=== PATIENT | male | born 1960 | race African-American/Black ===

== ENCOUNTER 2020-11-29 11:33 | Emergency (ER) | payer OTHER, SELFPAY ==
[~2020-11-29] VITALS: Ht 162.6 cm; Wt 113.4 kg
[2020-11-29 11:54] VITALS: BP_SYST 106
[2020-11-29] MEDS ORDERED: NAPR-1172 PO (13:09)
[2020-11-29] MEDS ORDERED: ACET-2634 PO (13:09)
[2020-11-29 13:25] VITALS: BP_SYST 106
== END 2020-11-29 13:25 | disposition home or self-care (01) ==
LOC: SED 11:33
DX: U07.1 COVID-19 (principal); I10 Essential (primary) hypertension; Z79.899 Other long term (current) drug therapy
CPT/HCPCS: 36415; 71045; 99284

== ENCOUNTER 2020-12-05 03:03 | Inpatient (IN) | payer OTHER, SELFPAY ==
[~2020-12-05] VITALS: Ht 190.5 cm; Wt 142.4 kg
[2020-12-05] VITALS (25 sets, daily range): BP systolic 85–156
[~2020-12-05 03:03] MED LIST: ACET-2634 PO; NAPR-1172 PO
[2020-12-05] MEDS ORDERED: ETOMIDATE 20 MG/ 10 ML VIAL (AMIDATE) IVP ONE ×2 (03:04→04:00)
[2020-12-05] MEDS ORDERED: ROCURONIUM BROMIDE 10 MG/ML (ZEMURON) IV ONE ×2 (03:04→04:00)
[2020-12-05] MEDS ORDERED: DEXAMETHASONE SOD PHOSPHATE 10 MG/ML VIAL IVP ONE (03:15)
[2020-12-05] MEDS ORDERED: AZITHROMYCIN 500 MG in NS 250 ML IV ONE (03:15)
[2020-12-05] MEDS ORDERED: cefTRIAXone 1 GM IVPB PREMIX 50 ML IV ONE (03:15)
[2020-12-05] MEDS ORDERED: AZITHROMYCIN 500 MG/VIAL (ZITHROMAX) IV ONE (03:29)
[2020-12-05] MEDS ORDERED: DEXAMETHASONE SOD PHOSPHATE 10 MG/ML VIAL ONE (03:30)
[2020-12-05 03:48] LABS: BASOPHILS # (AUTO) 0.1 K/uL (0.0-0.2); BASOPHILS % (AUTO) 1.1 % (0.0-2.0); HEMATOCRIT 36.7 % (36-54); HEMOGLOBIN 12.9 g/dL (14.0-18.0); LYMPHOCYTES # (AUTO) 1.2 K/uL (1.0-5.5); LYMPHOCYTES % (AUTO) 16.4 % (20.5-51.5); MEAN CORPUSCULAR HEMOGLOBIN 32 pg (27-31); MEAN CORPUSCULAR HGB CONC 35 % (32-36); MEAN CORPUSCULAR VOLUME 92 fL (79.0-98.0); MONOCYTES # (AUTO) 0.5 K/uL (0.0-1.0); MONOCYTES % (AUTO) 6.3 % (1.7-9.3); NEUTROPHILS # (AUTO) 5.5 K/uL (1.8-7.7); NEUTROPHILS % (AUTO) 76.2 % (40.0-70.0); PLATELET COUNT (AUTO) 260 K/uL (130-430); RED BLOOD CELL COUNT(AUTO) 4.01 MIL/uL (4.2-6.2); RED CELL DISTRIBUTION WIDTH 15.4 % (9.0-15.0); WHITE BLOOD COUNT (AUTO) 7.3 K/uL (4.8-10.8)
[2020-12-05] MEDS ORDERED: PROPOFOL DRIP 100 ML IV ONE ×2 (03:54→04:00)
[2020-12-05] MEDS ORDERED: LORazepam 2 MG/ML VIAL ONE (04:13)
[2020-12-05] MEDS ORDERED: LORazepam 2 MG/ML VIAL IVP ONE (04:15)
[2020-12-05 04:22] LABS: CALCIUM 7.5 mg/dL (8.4-11.0); CREATININE 2.3 mg/dL (0.55-1.30); POTASSIUM 4.1 mmol/L (3.5-5.1)
[2020-12-05 04:35] LABS: ALBUMIN 2.7 g/dL (3.4-4.8); TOTAL BILIRUBIN 0.5 mg/dL (0.0-1.0)
[2020-12-05] MEDS ORDERED: MELO15TA13 PO (04:40)
[2020-12-05] MEDS ORDERED: CYCL-10 PO (04:40)
[2020-12-05] MEDS ORDERED: LIP10 PO (04:40)
[2020-12-05] MEDS ORDERED: LEVE1000 PO (04:40)
[2020-12-05] MEDS ORDERED: CARV25TA55 PO (04:40)
[2020-12-05] MEDS ORDERED: DITXL5 PO (04:40)
[2020-12-05] MEDS ORDERED: ASPI-1393 PO (04:40)
[2020-12-05] MEDS ORDERED: NACL 0.9% 1,000 ML IV ONE ×2 (05:00→06:00)
[2020-12-05] MEDS ORDERED: IOHEXOL 350 mgI/mL, 150 ML INFUS..BTL IV ONE (06:31)
[2020-12-05] MEDS ORDERED: D5/0.45 NS 1,000 ML IV SCH (07:00)
[2020-12-05] MEDS ORDERED: ONDANSETRON HCL 4 MG/2 ML VIAL IVP PRN (07:45)
[2020-12-05] MEDS ORDERED: NOREPINEPHRINE 4 MG/4 ML VIAL IV ONE (07:59)
[2020-12-05 09:43] LABS: PROTHROMBIN TIME 10.9 SECS (9.5-12.5)
[2020-12-05] MEDS ORDERED: IPRATROPIUM BROM 0.5 MG/2.5 ML VIAL.NEB (ATROVENT) INH SCH (11:00)
[2020-12-05] MEDS ORDERED: ALBUTEROL SULFATE 0.083% 2.5 MG/3 ML VIAL.NEB INH SCH (11:00)
[2020-12-05] MEDS: PROPOFOL DRIP 100 ML IV PRN ×4 (11:12→18:25)
[2020-12-05] MEDS ORDERED: NALOXONE HCL 0.4 MG/ML AMP (NARCAN) IVP PRN (11:15)
[2020-12-05] MEDS ORDERED: IVERMECTIN 3 MG TABLET PO ONE (11:45)
[2020-12-05] MEDS ORDERED: TOCILIZUMAB 400 MG in NS 100 ML IV ONE (11:45)
[2020-12-05] MEDS: D5NS 1,000 ML IV SCH ×2 (13:00→23:02)
[2020-12-05] MEDS: NOREPINEPHRINE BITARTRATE 8 MG in NS 242 ML IV PRN (13:13)
[2020-12-05] MEDS: MORPHINE SULFATE IN 0.9 % NACL 100 ML IV PRN (13:15)
[2020-12-05] MEDS: HEPARIN SODIUM,PORCINE 5,000 UNITS/ML VIAL SUBCUT SCH ×2 (13:15→21:49)
[2020-12-05] MEDS: cefTRIAXone 1 GM IVPB PREMIX 50 ML IV SCH (20:31)
[2020-12-05] MEDS: AZITHROMYCIN 500 MG in NS 250 ML IV SCH (21:48)
[2020-12-06] VITALS (35 sets, daily range): BP systolic 87–134
[2020-12-06] MEDS: PROPOFOL DRIP 100 ML IV PRN ×8 (01:10→21:58)
[2020-12-06 06:27] LABS: BASOPHILS # (AUTO) 0.1 K/uL (0.0-0.2); BASOPHILS % (AUTO) 1.6 % (0.0-2.0); EOSINOPHILS % (AUTO) 0.1 % (0.0-4.0); HEMATOCRIT 35.7 % (36-54); HEMOGLOBIN 12.4 g/dL (14.0-18.0); LYMPHOCYTES # (AUTO) 0.6 K/uL (1.0-5.5); LYMPHOCYTES % (AUTO) 8.1 % (20.5-51.5); MEAN CORPUSCULAR HEMOGLOBIN 32 pg (27-31); MEAN CORPUSCULAR HGB CONC 35 % (32-36); MEAN CORPUSCULAR VOLUME 92 fL (79.0-98.0); MONOCYTES # (AUTO) 0.5 K/uL (0.0-1.0); MONOCYTES % (AUTO) 7.7 % (1.7-9.3); NEUTROPHILS # (AUTO) 5.8 K/uL (1.8-7.7); NEUTROPHILS % (AUTO) 82.5 % (40.0-70.0); PLATELET COUNT (AUTO) 213 K/uL (130-430); RED BLOOD CELL COUNT(AUTO) 3.88 MIL/uL (4.2-6.2); RED CELL DISTRIBUTION WIDTH 15.4 % (9.0-15.0)
[2020-12-06 06:35] LABS: CALCIUM 7.9 mg/dL (8.4-11.0); CREATININE 1.88 mg/dL (0.55-1.30); PHOSPHORUS 3.6 mg/dL (2.7-4.5); POTASSIUM 4.2 mmol/L (3.5-5.1)
[2020-12-06] MEDS: HEPARIN SODIUM,PORCINE 5,000 UNITS/ML VIAL SUBCUT SCH ×3 (06:52→20:41)
[2020-12-06] MEDS: ALBUTEROL MDI INHALATION 8 GM INH INH SCH ×5 (07:00→23:29)
[2020-12-06] MEDS: DOCUSATE SODIUM 250 MG CAPSULE PO SCH ×2 (08:27→20:38)
[2020-12-06] MEDS: DEXAMETHASONE SOD PHOSPHATE 10 MG/ML VIAL IVP SCH (08:27)
[2020-12-06] MEDS: SENNA 8.8 MG/5 ML UDC GT SCH ×2 (08:28→20:38)
[2020-12-06] MEDS: D5NS 1,000 ML IV SCH ×2 (08:28→20:37)
[2020-12-06] MEDS: NOREPINEPHRINE BITARTRATE 8 MG in NS 242 ML IV PRN (08:30)
[2020-12-06 09:37] LABS: C-REACTIVE PROTEIN QUANT 21.5 mg/dL (0-0.5)
[2020-12-06 09:40] LABS: ERYTHROCYTE SEDIMENTATION RATE 71 MM/HR (0-15)
[2020-12-06] MEDS ORDERED: IVERMECTIN 3 MG TABLET PO ONE (10:00)
[2020-12-06] MEDS ORDERED: TOCILIZUMAB 400 MG in NS 100 ML IV ONE (10:00)
[2020-12-06] MEDS: MORPHINE SULFATE IN 0.9 % NACL 100 ML IV PRN (17:55)
[2020-12-06] MEDS: INSULIN REGULAR, HUMAN 100 UNITS/ML, 10 ML VIAL (humuLIN R) SUBCUT PRN ×2 (18:14→20:55)
[2020-12-06] MEDS: cefTRIAXone 1 GM IVPB PREMIX 50 ML IV SCH (20:38)
[2020-12-06] MEDS: AZITHROMYCIN 500 MG in NS 250 ML IV SCH (20:57)
[2020-12-06 23:52] LABS: BILIRUBIN,URINE NEGATIVE (NEGATIVE); BLOOD, URINE NEGATIVE (NEGATIVE); CLARITY/URINE CLEAR (CLEAR); COLOR,URINE YELLOW (YELLOW); GLUCOSE,URINE 1+ (NEGATIVE); KETONES,URINE NEGATIVE (NEGATIVE); LEUKOCYTE ESTERASE ,URINE NEGATIVE (NEGATIVE); NITRITE, URINE NEGATIVE (NEGATIVE); PH,URINE 5.5 (5.0-8.0); PROTEIN URINE TRACE (NEGATIVE); UROBILINOGEN,URINE 0.2 (0.2-1.0)
[2020-12-07] VITALS (34 sets, daily range): BP systolic 84–129
[2020-12-07] MEDS: PROPOFOL DRIP 100 ML IV PRN ×9 (00:49→23:18)
[2020-12-07] MEDS: INSULIN REGULAR, HUMAN 100 UNITS/ML, 10 ML VIAL (humuLIN R) SUBCUT PRN ×4 (00:57→18:01)
[2020-12-07] MEDS: ALBUTEROL MDI INHALATION 8 GM INH INH SCH ×6 (03:49→23:15)
[2020-12-07] MEDS: NOREPINEPHRINE BITARTRATE 8 MG in NS 242 ML IV PRN ×2 (05:42→20:38)
[2020-12-07] MEDS: HEPARIN SODIUM,PORCINE 5,000 UNITS/ML VIAL SUBCUT SCH ×3 (05:50→21:23)
[2020-12-07 06:38] LABS: BASOPHILS % (AUTO) 0.1 % (0.0-2.0); HEMATOCRIT 35.8 % (36-54); HEMOGLOBIN 12.3 g/dL (14.0-18.0); LYMPHOCYTES # (AUTO) 0.6 K/uL (1.0-5.5); LYMPHOCYTES % (AUTO) 7.2 % (20.5-51.5); MEAN CORPUSCULAR HEMOGLOBIN 32 pg (27-31); MEAN CORPUSCULAR HGB CONC 35 % (32-36); MEAN CORPUSCULAR VOLUME 92 fL (79.0-98.0); MONOCYTES # (AUTO) 0.6 K/uL (0.0-1.0); MONOCYTES % (AUTO) 6.4 % (1.7-9.3); NEUTROPHILS # (AUTO) 7.6 K/uL (1.8-7.7); NEUTROPHILS % (AUTO) 86.3 % (40.0-70.0); PLATELET COUNT (AUTO) 230 K/uL (130-430); RED BLOOD CELL COUNT(AUTO) 3.88 MIL/uL (4.2-6.2); RED CELL DISTRIBUTION WIDTH 15.7 % (9.0-15.0); WHITE BLOOD COUNT (AUTO) 8.9 K/uL (4.8-10.8)
[2020-12-07] MEDS: D5NS 1,000 ML IV SCH ×2 (06:38→16:14)
[2020-12-07 06:56] LABS: ALBUMIN 2.3 g/dL (3.4-4.8); CALCIUM 7.5 mg/dL (8.4-11.0); CREATININE 1.91 mg/dL (0.55-1.30); PHOSPHORUS 3.3 mg/dL (2.7-4.5); POTASSIUM 4.2 mmol/L (3.5-5.1); TOTAL BILIRUBIN 0.3 mg/dL (0.0-1.0)
[2020-12-07 08:55] LABS: ERYTHROCYTE SEDIMENTATION RATE 58 MM/HR (0-15)
[2020-12-07 09:15] LABS: C-REACTIVE PROTEIN QUANT 13.6 mg/dL (0-0.5)
[2020-12-07] MEDS: SENNA 8.8 MG/5 ML UDC GT SCH ×2 (09:17→20:48)
[2020-12-07] MEDS: DOCUSATE SODIUM 250 MG CAPSULE PO SCH ×2 (09:17→20:48)
[2020-12-07] MEDS: DEXAMETHASONE SOD PHOSPHATE 10 MG/ML VIAL IVP SCH (09:17)
[2020-12-07 09:34] LABS: FERRITIN 2633 ng/mL (30-400)
[2020-12-07] MEDS ORDERED: IVERMECTIN 3 MG TABLET PO ONE (11:00)
[2020-12-07] MEDS: cefTRIAXone 1 GM IVPB PREMIX 50 ML IV SCH (20:49)
[2020-12-07] MEDS: AZITHROMYCIN 500 MG in NS 250 ML IV SCH (21:24)
[2020-12-08] VITALS (30 sets, daily range): BP systolic 47–121
[2020-12-08] MEDS: INSULIN REGULAR, HUMAN 100 UNITS/ML, 10 ML VIAL (humuLIN R) SUBCUT PRN ×5 (00:15→23:32)
[2020-12-08] MEDS: MORPHINE SULFATE IN 0.9 % NACL 100 ML IV PRN ×2 (02:46→23:35)
[2020-12-08] MEDS: PROPOFOL DRIP 100 ML IV PRN ×6 (02:46→23:38)
[2020-12-08] MEDS: ALBUTEROL MDI INHALATION 8 GM INH INH SCH ×5 (03:23→19:21)
[2020-12-08] MEDS: D5NS 1,000 ML IV SCH ×3 (05:11→21:07)
[2020-12-08] MEDS: HEPARIN SODIUM,PORCINE 5,000 UNITS/ML VIAL SUBCUT SCH ×3 (06:02→21:08)
[2020-12-08] MEDS ORDERED: NOREPINEPHRINE 4 MG/4 ML VIAL IV ONE (06:06)
[2020-12-08 06:54] LABS: BASOPHILS # (AUTO) 0.1 K/uL (0.0-0.2); BASOPHILS % (AUTO) 0.4 % (0.0-2.0); EOSINOPHILS % (AUTO) 0.4 % (0.0-4.0); HEMATOCRIT 38.1 % (36-54); HEMOGLOBIN 13.1 g/dL (14.0-18.0); LYMPHOCYTES # (AUTO) 1.6 K/uL (1.0-5.5); LYMPHOCYTES % (AUTO) 12.8 % (20.5-51.5); MEAN CORPUSCULAR HEMOGLOBIN 32 pg (27-31); MEAN CORPUSCULAR HGB CONC 35 % (32-36); MEAN CORPUSCULAR VOLUME 94 fL (79.0-98.0); MONOCYTES # (AUTO) 0.6 K/uL (0.0-1.0); MONOCYTES % (AUTO) 4.7 % (1.7-9.3); NEUTROPHILS # (AUTO) 10.2 K/uL (1.8-7.7); NEUTROPHILS % (AUTO) 81.7 % (40.0-70.0); PLATELET COUNT (AUTO) 211 K/uL (130-430); RED BLOOD CELL COUNT(AUTO) 4.07 MIL/uL (4.2-6.2); WHITE BLOOD COUNT (AUTO) 12.5 K/uL (4.8-10.8)
[2020-12-08 07:34] LABS: C-REACTIVE PROTEIN QUANT 8.1 mg/dL (0-0.5); CALCIUM 7.8 mg/dL (8.4-11.0); CREATININE 2.51 mg/dL (0.55-1.30); PHOSPHORUS 4.7 mg/dL (2.7-4.5); POTASSIUM 4.4 mmol/L (3.5-5.1)
[2020-12-08 07:52] LABS: ERYTHROCYTE SEDIMENTATION RATE 33 MM/HR (0-15)
[2020-12-08] MEDS: SENNA 8.8 MG/5 ML UDC GT SCH ×2 (08:18→21:06)
[2020-12-08] MEDS: ASCORBIC ACID 500 MG TABLET PO SCH (08:25)
[2020-12-08] MEDS: DEXAMETHASONE SOD PHOSPHATE 10 MG/ML VIAL IVP SCH (08:25)
[2020-12-08] MEDS: DOCUSATE SODIUM 250 MG CAPSULE PO SCH ×2 (08:25→21:07)
[2020-12-08] MEDS: CHOLECALCIFEROL (VITAMIN D3) 2,000 UNIT TABLET PO SCH (08:25)
[2020-12-08] MEDS: NOREPINEPHRINE BITARTRATE 8 MG in NS 242 ML IV PRN ×5 (10:02→22:36)
[2020-12-08] MEDS: FLUCONAZOLE 100 mg/ NS 50 ML IV SCH (12:17)
[2020-12-08] MEDS: CEFEPIME 0.5 GM in D5W 50 ML IV SCH ×2 (12:53→15:26)
[2020-12-08] MEDS: AZITHROMYCIN 500 MG in NS 250 ML IV SCH (21:07)
[2020-12-09] VITALS (33 sets, daily range): BP systolic 71–171
[2020-12-09] MEDS: ALBUTEROL MDI INHALATION 8 GM INH INH SCH ×7 (00:31→23:42)
[2020-12-09] MEDS: NOREPINEPHRINE BITARTRATE 8 MG in NS 242 ML IV PRN ×5 (02:09→15:02)
[2020-12-09] MEDS: PROPOFOL DRIP 100 ML IV PRN ×7 (02:22→22:09)
[2020-12-09] MEDS: INSULIN REGULAR, HUMAN 100 UNITS/ML, 10 ML VIAL (humuLIN R) SUBCUT PRN ×3 (05:49→18:35)
[2020-12-09] MEDS: HEPARIN SODIUM,PORCINE 5,000 UNITS/ML VIAL SUBCUT SCH ×3 (05:49→22:06)
[2020-12-09 06:51] LABS: BASOPHILS # (AUTO) 0.1 K/uL (0.0-0.2); BASOPHILS % (AUTO) 0.6 % (0.0-2.0); EOSINOPHILS # (AUTO) 0.2 K/uL (0.0-0.4); HEMATOCRIT 36.9 % (36-54); HEMOGLOBIN 12.5 g/dL (14.0-18.0); LYMPHOCYTES # (AUTO) 1.8 K/uL (1.0-5.5); LYMPHOCYTES % (AUTO) 10.7 % (20.5-51.5); MEAN CORPUSCULAR HEMOGLOBIN 32 pg (27-31); MEAN CORPUSCULAR HGB CONC 34 % (32-36); MEAN CORPUSCULAR VOLUME 96 fL (79.0-98.0); MONOCYTES # (AUTO) 0.6 K/uL (0.0-1.0); MONOCYTES % (AUTO) 3.8 % (1.7-9.3); NEUTROPHILS % (AUTO) 83.9 % (40.0-70.0); PLATELET COUNT (AUTO) 208 K/uL (130-430); RED BLOOD CELL COUNT(AUTO) 3.86 MIL/uL (4.2-6.2); RED CELL DISTRIBUTION WIDTH 16.6 % (9.0-15.0); WHITE BLOOD COUNT (AUTO) 16.7 K/uL (4.8-10.8)
[2020-12-09 07:42] LABS: CALCIUM 7.3 mg/dL (8.4-11.0); CREATININE 4.68 mg/dL (0.55-1.30); POTASSIUM 5.3 mmol/L (3.5-5.1)
[2020-12-09] MEDS: D5NS 1,000 ML IV SCH (08:08)
[2020-12-09] MEDS: ASCORBIC ACID 500 MG TABLET PO SCH (08:09)
[2020-12-09] MEDS: DOCUSATE SODIUM 250 MG CAPSULE PO SCH ×2 (08:09→20:29)
[2020-12-09] MEDS: CHOLECALCIFEROL (VITAMIN D3) 2,000 UNIT TABLET PO SCH (08:09)
[2020-12-09] MEDS: DEXAMETHASONE SOD PHOSPHATE 10 MG/ML VIAL IVP SCH (08:11)
[2020-12-09] MEDS: SENNA 8.8 MG/5 ML UDC GT SCH ×2 (08:12→20:35)
[2020-12-09] MEDS ORDERED: SODIUM POLYSTYRENE SULFONATE 15 GM/60 ML UDBTL PO ONE (09:00)
[2020-12-09 10:46] LABS: ERYTHROCYTE SEDIMENTATION RATE 23 MM/HR (0-15)
[2020-12-09] MEDS: PIPERACILLIN/TAZO 2.25G/DEX-IS 50 ML IV SCH ×2 (11:43→18:27)
[2020-12-09] MEDS: FLUCONAZOLE 100 mg/ NS 50 ML IV SCH (13:08)
[2020-12-09] MEDS ORDERED: COMMUNICATION ORDER XX ONE ×2 (15:15→16:45)
[2020-12-09] MEDS ORDERED: NOREPINEPHRINE BITARTRATE 16 MG in NS 234 ML IV PRN (15:15)
[2020-12-09] MEDS ORDERED: HEPARIN SODIUM,PORCINE 5,000 UNITS/ML VIAL ONE (16:47)
[2020-12-09] MEDS ORDERED: HEPARIN SODIUM,PORCINE 5,000 UNITS/ML VIAL MC ONE ×2 (17:00)
[2020-12-09] MEDS: NOREPINEPHRINE BITARTRATE 16 MG in D5W 234 ML IV PRN (19:55)
[2020-12-10] VITALS (32 sets, daily range): BP systolic 64–135
[2020-12-10] MEDS: PIPERACILLIN/TAZO 2.25G/DEX-IS 50 ML IV SCH ×4 (00:03→18:51)
[2020-12-10] MEDS: MORPHINE SULFATE IN 0.9 % NACL 100 ML IV PRN ×2 (00:04→11:41)
[2020-12-10] MEDS: NOREPINEPHRINE BITARTRATE 16 MG in D5W 234 ML IV PRN ×6 (00:05→18:52)
[2020-12-10] MEDS: PROPOFOL DRIP 100 ML IV PRN ×7 (00:06→18:54)
[2020-12-10] MEDS: INSULIN REGULAR, HUMAN 100 UNITS/ML, 10 ML VIAL (humuLIN R) SUBCUT PRN ×4 (00:06→17:38)
[2020-12-10] MEDS: LORazepam 2 MG/ML VIAL IVP PRN ×3 (00:42→11:34)
[2020-12-10] MEDS: D5NS 1,000 ML IV SCH ×3 (02:58→18:55)
[2020-12-10] MEDS: ALBUTEROL MDI INHALATION 8 GM INH INH SCH ×5 (03:28→19:24)
[2020-12-10] MEDS: HEPARIN SODIUM,PORCINE 5,000 UNITS/ML VIAL SUBCUT SCH ×2 (06:13→14:46)
[2020-12-10 07:08] LABS: C-REACTIVE PROTEIN QUANT 10.2 mg/dL (0-0.5); CALCIUM 7.1 mg/dL (8.4-11.0); CREATININE 5.91 mg/dL (0.55-1.30)
[2020-12-10] MEDS: CHOLECALCIFEROL (VITAMIN D3) 2,000 UNIT TABLET PO SCH (08:13)
[2020-12-10] MEDS: DOCUSATE SODIUM 250 MG CAPSULE PO SCH (08:13)
[2020-12-10] MEDS: ASCORBIC ACID 500 MG TABLET PO SCH (08:14)
[2020-12-10] MEDS: SENNA 8.8 MG/5 ML UDC GT SCH (08:15)
[2020-12-10] MEDS: DEXAMETHASONE SOD PHOSPHATE 10 MG/ML VIAL IVP SCH (08:15)
[2020-12-10 09:38] LABS: BASOPHILS % (AUTO) 0.4 % (0.0-2.0); EOSINOPHILS # (AUTO) 0.1 K/uL (0.0-0.4); EOSINOPHILS % (AUTO) 1.1 % (0.0-4.0); HEMATOCRIT 34.1 % (36-54); HEMOGLOBIN 11.4 g/dL (14.0-18.0); LYMPHOCYTES # (AUTO) 2.6 K/uL (1.0-5.5); LYMPHOCYTES % (AUTO) 22.5 % (20.5-51.5); MEAN CORPUSCULAR HEMOGLOBIN 32 pg (27-31); MEAN CORPUSCULAR HGB CONC 33 % (32-36); MEAN CORPUSCULAR VOLUME 95 fL (79.0-98.0); MONOCYTES # (AUTO) 0.6 K/uL (0.0-1.0); MONOCYTES % (AUTO) 5.1 % (1.7-9.3); NEUTROPHILS # (AUTO) 8.1 K/uL (1.8-7.7); NEUTROPHILS % (AUTO) 70.9 % (40.0-70.0); PLATELET COUNT (AUTO) 155 K/uL (130-430); RED BLOOD CELL COUNT(AUTO) 3.58 MIL/uL (4.2-6.2); RED CELL DISTRIBUTION WIDTH 16.9 % (9.0-15.0); WHITE BLOOD COUNT (AUTO) 11.5 K/uL (4.8-10.8)
[2020-12-10] MEDS ORDERED: IVERMECTIN 3 MG TABLET PO ONE (09:45)
[2020-12-10 10:00] LABS: ERYTHROCYTE SEDIMENTATION RATE 29 MM/HR (0-15)
[2020-12-10] MEDS ORDERED: ALBUMIN HUMAN 25% 200 ML IV ONE (11:00)
[2020-12-10] MEDS: FLUCONAZOLE 100 mg/ NS 50 ML IV SCH (11:42)
[2020-12-10] MEDS ORDERED: AMIODARONE HCL 150 MG in D5W 100 ML IV ONE (12:30)
[2020-12-10] MEDS ORDERED: AMIODARONE HCL 450 MG in D5W 241 ML IV SCH (12:30)
[2020-12-10] MEDS ORDERED: VECURONIUM BROMIDE 50 MG in NS 50 ML IV PRN (13:00)
[2020-12-10] MEDS ORDERED: VASOPRESSIN 100 UNITS in D5W 45 ML IV PRN (13:00)
[2020-12-10] MEDS ORDERED: SODIUM BICARBONATE 8.4% JECT 50 MEQ/50 ML SYRINGE IVP ONE (23:41)
[2020-12-10] MEDS ORDERED: NORMAL SALINE 10 ML VIAL IVP ONE (23:41)
[2020-12-10] MEDS ORDERED: EPINEPHrine JECT 0.1 MG/ML SYR IVP ONE (23:41)
== END 2020-12-10 23:42 | DRG 870 ==
LOC: SED 03:03 → SIC 06:54
PROVIDERS: ADMIT Preventive Medicine Preventive Medicine/Occupational Environmental Medicine; ATTEND Preventive Medicine Preventive Medicine/Occupational Environmental Medicine
PROC: 5A1955Z Respiratory Ventilation, Greater than 96 Consecutive Hours (ICD-10-PCS; principal; 2020-12-05)
PROC: 5A09357 Assistance with Respiratory Ventilation, Less than 24 Consecutive Hours, Continuous Positive Airway Pressure (ICD-10-PCS; 2020-12-05)
PROC: 0BH17EZ Insertion of Endotracheal Airway into Trachea, Via Natural or Artificial Opening (ICD-10-PCS; 2020-12-05)
PROC: XW033H5 Introduction of Tocilizumab into Peripheral Vein, Percutaneous Approach, New Technology Group 5 (ICD-10-PCS; 2020-12-06)
PROC: 02HV33Z Insertion of Infusion Device into Superior Vena Cava, Percutaneous Approach (ICD-10-PCS; 2020-12-09)
PROC: B548ZZA Ultrasonography of Superior Vena Cava, Guidance (ICD-10-PCS; 2020-12-09)
PROC: 5A12012 Performance of Cardiac Output, Single, Manual (ICD-10-PCS; 2020-12-10)
DX: A41.9 Sepsis, unspecified organism (principal); R65.21 Severe sepsis with septic shock; U07.1 COVID-19; J12.82 Pneumonia due to coronavirus disease 2019; J80 Acute respiratory distress syndrome; N17.0 Acute kidney failure with tubular necrosis; E87.1 Hypo-osmolality and hyponatremia; E87.2 Acidosis; I42.9 Cardiomyopathy, unspecified; Z99.11 Dependence on respirator [ventilator] status; E66.01 Morbid (severe) obesity due to excess calories; E78.5 Hyperlipidemia, unspecified; E83.41 Hypermagnesemia; E83.42 Hypomagnesemia; E83.52 Hypercalcemia; E88.09 Other disorders of plasma-protein metabolism, not elsewhere classified; G40.909 Epilepsy, unspecified, not intractable, without status epilepticus; M19.90 Unspecified osteoarthritis, unspecified site; N40.0 Benign prostatic hyperplasia without lower urinary tract symptoms; E11.65 Type 2 diabetes mellitus with hyperglycemia; D64.9 Anemia, unspecified; D72.810 Lymphocytopenia; I12.9 Hypertensive chronic kidney disease with stage 1 through stage 4 chronic kidney disease, or unspecified chronic kidney disease; E11.22 Type 2 diabetes mellitus with diabetic chronic kidney disease; N18.9 Chronic kidney disease, unspecified; Z68.39 Body mass index [BMI] 39.0-39.9, adult; Z79.82 Long term (current) use of aspirin; Z79.899 Other long term (current) drug therapy; Z79.01 Long term (current) use of anticoagulants; Z79.1 Long term (current) use of non-steroidal anti-inflammatories (NSAID); I46.9 Cardiac arrest, cause unspecified
CPT/HCPCS: 36415; 36600; 71045; 76770; 80048; 80053; 81003; 82728; 82803-TC; 82962; 83036; 83605; 83735; 83880; 84100; 84302; 84484; 85025; 85379; 85610-TC; 85651-TC; 85730-TC; 86140; 86480; 87040-TC; 87070-TC; 87081; 87086; 87205-TC; 92950; 93005; 94002; 94003; 94640; 94660; 96365; 96368; 96375; 99291; 99292; J0171; J0282; J0456; J0692; J0696; J1100; J1450; J1644; J1815; J2060; J2270; J2543; J2704; J3262; J3490; J7050; J7060; J7613; Q9967